=== PATIENT | female | born 1950 | race Caucasian/White ===

== ENCOUNTER → 2024-03-16 06:09 | Outpatient (REF) | payer MEDICARE, OTHER, SELFPAY ==
[2024-03-16 09:28] LABS: % Basophils 0.9 % (0-2); % Eosinophils 2.3 % (0-6); % Immature Granulocytes 0.2 % (0-0.5); % Lymphocytes 40.7 % (20.5-51.1); % Monocytes 9.1 % (1.7-9.3); % Neutrophils 46.8 % (42.2-75.2); Absolute Basophils 0.1 10^3/uL (0-0.2); Absolute Eosinophils 0.1 10^3/uL (0-0.7); Absolute Lymphocytes 2.3 10^3/uL (1.2-3.4); Absolute Monocytes 0.5 10^3/uL (0.1-0.6); Absolute Neutrophils 2.7 10^3/uL (1.4-6.5); Hematocrit 39.8 % (37.0-47.0); Hemoglobin 13.2 g/dL (12.0-16.0); Mean Corp Hgb Conc. 33.2 g/dL (33.0-37.0); Mean Corpuscular Hgb 31.2 pg (27.0-31.0); Mean Corpuscular Volume 94.1 fL (81.0-99.0); Mean Platelet Volume 10.8 fL (7.4-10.4); Nucleated Red Blood Cells % 0 %; Platelet Count 265 10^3/uL (130-400); Red Blood Cell Count 4.23 10^6/uL (4.20-5.40); Red Cell Dist. Width 12.9 % (11.5-14.5); White Blood Cell Count 5.7 10^3/uL (4.8-10.8)
[2024-03-16 09:32] LABS: Urine Albumin Negative (Neg - Trace); Urine Bilirubin Negative (Negative); Urine Character Clear (Clear); Urine Color Yellow; Urine Glucose Negative (Negative); Urine Ketone Negative (Negative); Urine Leukocyte Negative (Negative); Urine Nitrite Negative (Negative); Urine Occult Blood Negative (Negative); Urine Urobilinogen Negative (Neg - 1+)
[2024-03-16 10:33] LABS: C-Reactive Protein < 5.00 mg/L (0.0-10.00)
[2024-03-16 10:51] LABS: Erythrocyte Sed Rate 10 mm/hour (0-20)
[2024-03-16 15:19] LABS: ALT (SGPT) 27 U/L (0-35); AST (SGOT) 31 U/L (14-36); Albumin 3.9 g/dl (3.5-5.0); Alkaline Phosphatase 79 U/L (38-126); Blood Urea Nitrogen 15 mg/dl (7-17); Carbon Dioxide 27 mmol/L (22-30); Chloride 106 mmol/L (98-107); Glucose 95 mg/dl (70-99); HDL Cholesterol 42 mg/dl; LDL Cholesterol, Calculated 78 mg/dl; Potassium 4.6 mmol/L (3.5-5.1); Sodium 140 mmol/L (135-145); Total Bilirubin 0.3 mg/dl (0.2-1.3); Total Cholesterol 156 mg/dl (50-199); Total Protein 6.3 g/dl (6.3-8.2); Triglyceride 184 mg/dl (10-149); Very Low Density Lipoprotein 36 mg/dl (0-30); eGFR > 60.00
[2024-03-18 15:22] LABS: Rheumatoid Agglutinin Less Than 10 IU (<10 IU)
== END ==
LOC: HWLAB 06:09
PROVIDERS: ATTENDING PHYSICIAN Nurse Practitioner
DX: E78.2 Mixed hyperlipidemia (principal); R06.83 Snoring; R53.83 Other fatigue
CPT/HCPCS: 36415; 80053; 80061; 81003; 85025; 85652; 86140; 86430

== ENCOUNTER → 2024-05-12 11:40 | Outpatient (REF) | payer MEDICARE, OTHER, SELFPAY | LOC: HWWDC 11:40 | PROVIDERS: ATTENDING PHYSICIAN Nurse Practitioner | DX: Z12.31 Encounter for screening mammogram for malignant neoplasm of breast (principal) | CPT/HCPCS: 77063; 77067 ==

== ENCOUNTER → 2024-05-20 09:42 | Outpatient (REF) | payer MEDICARE, OTHER, SELFPAY | LOC: PAVMRI 09:42 | PROVIDERS: ATTENDING PHYSICIAN Physical Medicine & Rehabilitation | DX: M54.16 Radiculopathy, lumbar region (principal) | CPT/HCPCS: 72148 ==

== ENCOUNTER → 2024-05-25 08:48 | Outpatient (REF) | payer MEDICARE, OTHER, SELFPAY | LOC: WDC 08:48 | PROVIDERS: ATTENDING PHYSICIAN Nurse Practitioner | DX: R92.8 Other abnormal and inconclusive findings on diagnostic imaging of breast (principal) | CPT/HCPCS: 77065 ==

== ENCOUNTER → 2024-06-15 13:38 | Outpatient (REF) | payer MEDICARE, OTHER, SELFPAY | LOC: HWRCS 13:38 | PROVIDERS: ATTENDING PHYSICIAN Internal Medicine Cardiovascular Disease; FAMILY PHYSICIAN Nurse Practitioner Adult Health | DX: I35.0 Nonrheumatic aortic (valve) stenosis (principal) | CPT/HCPCS: 93306 ==

== ENCOUNTER 2024-06-22 12:37 | Emergency (ER) | payer MEDICARE, OTHER, SELFPAY ==
[2024-06-22 12:42] VITALS: BP 160/80
[2024-06-22] MEDS: TYLENOL 650 MG PO (13:52)
[2024-06-22 15:04] VITALS: BP 135/66
--- NOTE | 2024-06-22 15:13 | ED.GENMED ---
History of Present Illness
General
Chief Complaint: Fall
Source: patient
Exam Limitations: none
Time Seen by Provider: 06/22/24 13:08
Nursing documentation reviewed up to this point in time: agreed with
History of Present Illness
History of Present Illness:
73 y/o F with h/o meningioma s/p resection previously, htn ,hld, anxiety
had a mechanical fall and tripped hitting her head and landing on L wrist
pt is L hand dominant
she has difficulty moving the wrist
pain goes up to the elbow
no neck pain, LOC, thinners, vomiting, confusion, weakness, ches tpain,hip pain
ptwas helped up via EMS and was able to walk without assistance
Past History
Past History
ED Past Medical History: HTN, Hypercholesterolemia, Other and Other
ED Past Surgical History: Appendectomy, Brain (Meningioma removal April 2013), Cholecystectomy, Gynecological (Total Hysterectomy) and Orthopedic (Right total knee replacement 02/22/2019)
Social History
Tobacco: Former smoker
Alcohol: None
Personal:
Living: with family
Employment: Employed
Family History
Family History: Other (Noncontributory)
Review of Systems
Review of Systems
Allergies reviewed?: Yes
All Other Systems: Not applicable
Phy Exam
Physical Exam
Physical Exam:
GENERAL: Alert , in no apparent distress
HEAD: small abrasion L forehaed; pt also has chronic indentation o sharri L temporal region which she says is post surgical and not new;
NECK: no midline tenderness, active ROM intact, no paraspinal muscle tenderness;
EYE: pupils equal and reactive, EOMs intact.
CARDIAC: Regular rate and rhythm, no edema
LUNGS: Clear breath sounds bilaterally, no acute respiratory distress, no wheezes/rales/rhonchi
ABDOMEN: Soft, without focal tenderness, no r/g, no cvat
NEUROLOGICAL: Alert and oriented, no focal neuro deficits, CN intact, 5/5 strength, sensation intact
SKIN: Warm and dry, superficial abrasion L forehaed
MUSCULOSKELETAL swelling dorsally radius L with tenderness; normal pulse, hand normal, forearm and elbow normal nontender,
shoulder L nontender
hips b/l nontnder
moving all lower extremities
PSYCH: Normal and appropriate interaction.
Course
Orders/Labs/Results
Orders:
Orders
06/22/24 12:40
Wrist, Left 3 Views CR [CR Wrist - Left Min 3 Views] Urgent
Comment:
Reason For Exam: fall
06/22/24 12:45
Forearm, Left 2 View [CR Forearm - Left 2 View] Urgent
Comment:
Reason For Exam: pain, fall
06/22/24 13:31
CT Head W/o Iv Contrast Urgent
Comment:
Reason For Exam: hit head; h/o surgery previuosly
06/22/24 13:32
Acetaminophen [Tylenol] 650 mg PO NOW STA
Vital Signs
Initial and Last Documented VS:
Initial Vital Signs
Temp Pulse Resp BP Pulse Ox
98.6 F 52 16 160/80 98
06/22/24 12:42 06/22/24 12:42 06/22/24 12:42 06/22/24 12:42 06/22/24 12:42
Last Documented Vital Signs
Temp Pulse Resp BP Pulse Ox
98.6 F 51 18 135/66 95
06/22/24 12:42 06/22/24 15:04 06/22/24 15:04 06/22/24 15:04 06/22/24 15:04
MDM/Problems Addressed
Differential Diagnosis Includes:
contusion, fracture, head injury, concussion
MDM/Problems Addressed:
73 y/o F
mechnaical fall
head strike no LOC
L wrist pain with swelling
neuro intact
previous brain surgery and has an indentation L forehead where she struck but no other tendneress
neck nontender
L wrist swelling with tendnerness
xray indep reviewed by me shows impacted fracture, dorsal angulation
d/w orthopedist dr. rader
ok to splint in place and he will f/u, will likely need surgery
head ct neg
d/c home
*Critical Care Note
Total Time (30-74mins, 75-104mins- exclusive of procedures): Not Applicable
ED Attending Note
-
Portions of this chart may have been created with voice recognition software.� Occasional wrong word or��sound alike� substitutions may have occurred due to the inherent limitations of voice recognition software.
Discharge Plan
Departure
Patient Disposition: Home (Routine Discharge)
Date of Disposition: 06/22/24
Time of Disposition: 14:54
Patient with high blood pressure during this ER visit?: Yes
Condition: Fair
Covid-19: Not Applicable
Discharge Problem:
Closed left radial fracture, Head injury
Instructions: Head Injury in Adults (DC), Forearm and Wrist Fractures ED, BLOOD PRESSURE
Prescriptions:
No Action
Alphagan P 0.1 %
1 drp BOTH EYES Q12H
atorvastatin 10 MG tablet
20 mg PO QPM
citalopram 10 MG tablet
10 mg PO DAILY
losartan 25 MG tablet
50 mg PO DAILY
polyethylene glycol 3350 17 GRAMS powder in packet
17 grams PO DAILY PRN (Reason: constipation)
rgdbnfgpdjyp-ywwq-wezzh acid [Centrum] 1 EACH tablet
1 ea PO DAILY
Nexium
1 tab PO DAILY
calcium citrate-vitamin D3 [Citracal + D Maximum] 1 EACH tablet
1 ea PO BID
Vitamin D3:
2,000 units PO BID
Referrals:
Eliazar Rader MD [Active] - Follow up in 2-3 days (hand doctor)
Donna Montero CRNP [Family Provider] -
Activity Restrictions/Additional Instructions:
YOU BROKE YOUR WRIST
WEAR THE SPLINT, DO NOT TAKE IT OFF, DO NOT GET WET UNTIL YOU SEE THE ORTHOPEDIST
THEY ARE GOING TO CALL TO HELP ARRANGE FOLLOW UP
ELEVATE, ICE OFF AND ON, TYLENOL FOR PAIN NEEDED
YOUR CAT SCAN WAS NEGATIVE FOR SIGNS OF TRAUMA
TYLENL EVERY 6 HOURS NEEDED FOR PAIN
RETURN FOR: SEVERE PAIN, VOMITING, ,CONFUSION, NUMBNESS/TINGLING/WEAKNESS IN ARMS OR LEGS OR ANY CONCERNS.
Interventions
Interventions:
*Risk Screen - Suicide Last Done: 06/22/24 13:35
*General Assessment Last Done: 06/22/24 13:35
*Neglect/Abuse Screening Last Done: 06/22/24 13:35
*ED COVID-19 Vaccine History Last Done: 06/22/24 13:35
*Nursing Disposition Last Done: 06/22/24 15:04
ED-Musculoskeletal Assessment Last Done: 06/22/24 13:35
ED- Neurological Assessment Last Done: 06/22/24 13:35
ED-Skin Assessment Last Done: 06/22/24 13:35
Discharge Date and Time
Discharge Date/Time: 06/22/24 15:05
Print Language: WELSH
== END 2024-06-22 15:05 | disposition home or self-care (01) ==
LOC: EMR 12:37
PROVIDERS: EMERGENCY PHYSICIAN Student in an Organized Health Care Education/Training Program; FAMILY PHYSICIAN Nurse Practitioner Adult Health
DX: S52.572A Other intraarticular fracture of lower end of left radius, initial encounter for closed fracture (principal); S09.90XA Unspecified injury of head, initial encounter; W19.XXXA Unspecified fall, initial encounter; I10 Essential (primary) hypertension; E78.00 Pure hypercholesterolemia, unspecified; F41.9 Anxiety disorder, unspecified; Z87.891 Personal history of nicotine dependence; Z86.011 Personal history of benign neoplasm of the brain; Z90.49 Acquired absence of other specified parts of digestive tract; Z90.710 Acquired absence of both cervix and uterus
CPT/HCPCS: 99284; 29125; 70450; 73090; 73110

== ENCOUNTER → 2024-12-13 07:22 | Outpatient (REF) | payer MEDICARE, OTHER, SELFPAY ==
[2024-12-13 09:52] LABS: % Basophils 0.8 % (0-2); % Eosinophils 2.6 % (0-6); % Immature Granulocytes 0.2 % (0-0.5); % Lymphocytes 31.6 % (20.5-51.1); % Monocytes 9.4 % (1.7-9.3); % Neutrophils 55.4 % (42.2-75.2); Absolute Basophils 0.1 10^3/uL (0-0.2); Absolute Eosinophils 0.2 10^3/uL (0-0.7); Absolute Monocytes 0.6 10^3/uL (0.1-0.6); Absolute Neutrophils 3.5 10^3/uL (1.4-6.5); Hematocrit 41.6 % (37.0-47.0); Hemoglobin 13.5 g/dL (12.0-16.0); Mean Corp Hgb Conc. 32.5 g/dL (33.0-37.0); Mean Corpuscular Hgb 30.5 pg (27.0-31.0); Mean Corpuscular Volume 93.9 fL (81.0-99.0); Mean Platelet Volume 11.1 fL (7.4-10.4); Nucleated Red Blood Cells % 0 %; Platelet Count 304 10^3/uL (130-400); Red Blood Cell Count 4.43 10^6/uL (4.20-5.40); Red Cell Dist. Width 13.3 % (11.5-14.5); White Blood Cell Count 6.3 10^3/uL (4.8-10.8)
[2024-12-13 10:07] LABS: ALT (SGPT) 26 U/L (0-35); AST (SGOT) 28 U/L (14-36); Albumin 3.7 g/dl (3.5-5.0); Alkaline Phosphatase 77 U/L (38-126); Blood Urea Nitrogen 14 mg/dl (7-17); Calcium 9.7 mg/dl (8.4-10.2); Carbon Dioxide 28 mmol/L (22-30); Chloride 108 mmol/L (98-107); Glucose 107 mg/dl (70-99); HDL Cholesterol 43 mg/dl; LDL Cholesterol, Calculated 86 mg/dl; Potassium 4.7 mmol/L (3.5-5.1); Sodium 144 mmol/L (135-145); Total Bilirubin 0.6 mg/dl (0.2-1.3); Total Cholesterol 165 mg/dl (50-199); Total Protein 6.3 g/dl (6.3-8.2); Triglyceride 180 mg/dl (10-149); Very Low Density Lipoprotein 36 mg/dl (0-30); eGFR > 60.00
[2024-12-13 10:20] LABS: Vitamin D, 25-OH*** 30.5 ng/mL (30-80)
== END ==
LOC: HWRAD 07:22
PROVIDERS: ATTENDING PHYSICIAN Internal Medicine; FAMILY PHYSICIAN Nurse Practitioner Adult Health
DX: R10.13 Epigastric pain (principal); E78.2 Mixed hyperlipidemia; M81.0 Age-related osteoporosis without current pathological fracture
CPT/HCPCS: 36415; 76700; 80053; 80061; 82306; 85025

== ENCOUNTER 2025-01-06 06:24 | Day surgery (SDC) | payer MEDICARE, OTHER, SELFPAY | END 2025-01-06 07:20 | disposition home or self-care (01) | LOC: GI 06:24 | PROVIDERS: ATTENDING PHYSICIAN Internal Medicine | DX: R10.13 Epigastric pain (principal); K44.9 Diaphragmatic hernia without obstruction or gangrene; K31.89 Other diseases of stomach and duodenum | CPT/HCPCS: 43239; 88305; 88342 ==

== ENCOUNTER → 2025-01-17 14:07 | Outpatient (REF) | payer MEDICARE, OTHER, SELFPAY | LOC: HWWDC 14:07 | PROVIDERS: ATTENDING PHYSICIAN Nurse Practitioner Adult Health; FAMILY PHYSICIAN Radiology Radiation Oncology; REFERRING PHYSICIAN Internal Medicine Endocrinology, Diabetes & Metabolism | DX: Z78.0 Asymptomatic menopausal state (principal); Z12.31 Encounter for screening mammogram for malignant neoplasm of breast | CPT/HCPCS: 77061; 77065; 77080 ==

== ENCOUNTER → 2025-02-12 07:32 | Outpatient (REF) | payer MEDICARE, OTHER, SELFPAY ==
[2025-02-12 08:41] LABS: Hematocrit 39.7 % (37.0-47.0); Hemoglobin 13.1 g/dL (12.0-16.0); Mean Corp Hgb Conc. 33.0 g/dL (33.0-37.0); Mean Corpuscular Volume 91.9 fL (81.0-99.0); Platelet Count 253 10^3/uL (130-400); Red Cell Dist. Width 12.2 % (11.5-14.5)
[2025-02-12 08:58] LABS: Urine Character Slightly Cloudy (Clear)
[2025-02-12 09:13] LABS: ALT (SGPT) 27 U/L (0-35); AST (SGOT) 29 U/L (14-36); Albumin 4.0 g/dl (3.5-5.0); Alkaline Phosphatase 74 U/L (38-126); Blood Urea Nitrogen 16 mg/dl (7-17); Calcium 9.0 mg/dl (8.4-10.2); Carbon Dioxide 26 mmol/L (22-30); Chloride 109 mmol/L (98-107); Glucose 97 mg/dl (70-99); HDL Cholesterol 38 mg/dl; LDL Cholesterol, Calculated 86 mg/dl; Potassium 4.7 mmol/L (3.5-5.1); Sodium 142 mmol/L (135-145); Total Protein 6.6 g/dl (6.3-8.2); Very Low Density Lipoprotein 35 mg/dl (0-30); eGFR > 60.00
[2025-02-12 09:18] LABS: Urine Red Blood Cell 0-2 /HPF (0-2)
[2025-02-12 09:27] LABS: Free T3 3.88 pg/ml (2.77-5.27); Vitamin D, 25-OH*** 36.6 ng/mL (30-80)
[2025-02-12 09:40] LABS: TSH 3.69 uIU/ml (0.47-4.68)
== END ==
LOC: REG 07:32
PROVIDERS: ATTENDING PHYSICIAN Internal Medicine Endocrinology, Diabetes & Metabolism; FAMILY PHYSICIAN Nurse Practitioner Adult Health
DX: E05.90 Thyrotoxicosis, unspecified without thyrotoxic crisis or storm (principal); R26.89 Other abnormalities of gait and mobility; R26.2 Difficulty in walking, not elsewhere classified; I35.0 Nonrheumatic aortic (valve) stenosis; I10 Essential (primary) hypertension; E78.5 Hyperlipidemia, unspecified; E66.9 Obesity, unspecified; F41.9 Anxiety disorder, unspecified; K60.2 Anal fissure, unspecified; Z79.899 Other long term (current) drug therapy
CPT/HCPCS: 36415; 80053; 80061; 81003; 81015; 82306; 84439; 84443; 84481; 85027; 87077; 87086; 87186

== ENCOUNTER → 2025-02-15 09:35 | Outpatient (REF) | payer MEDICARE, OTHER, SELFPAY | LOC: RAD 09:35 | PROVIDERS: ATTENDING PHYSICIAN Internal Medicine; FAMILY PHYSICIAN Nurse Practitioner Adult Health | DX: R10.13 Epigastric pain (principal); R63.0 Anorexia; R63.4 Abnormal weight loss | CPT/HCPCS: 74177; Q9967 ==